=== PATIENT | male | born 1955 | race Caucasian/White ===

== ENCOUNTER 2023-09-04 15:27 | Outpatient (RCR) | payer MEDICARE, SELFPAY | END 2023-09-04 23:59 | disposition home or self-care (01) | LOC: RPT 15:27 | PROVIDERS: ATTENDING PHYSICIAN Internal Medicine Geriatric Medicine | DX: M54.50 Low back pain, unspecified (principal); Z73.6 Limitation of activities due to disability | CPT/HCPCS: 97110; 97162; 97530 ==

== ENCOUNTER 2023-09-26 16:52 | Outpatient (RCR) | payer MEDICARE, SELFPAY | END 2023-09-26 23:59 | disposition home or self-care (01) | LOC: RPT 16:52 | PROVIDERS: ATTENDING PHYSICIAN Internal Medicine Geriatric Medicine | DX: M54.9 Dorsalgia, unspecified (principal); Z73.6 Limitation of activities due to disability; M54.50 Low back pain, unspecified | CPT/HCPCS: 72110; 97010; 97110; 97112; 97140; 97530 ==

== ENCOUNTER → 2024-03-25 08:04 | Outpatient (REF) | payer MEDICARE, SELFPAY ==
[2024-03-25 10:06] LABS: % Basophils 0.3 % (0-2); % Eosinophils 0.6 % (0-6); % Immature Granulocytes 0.1 % (0-0.5); % Lymphocytes 14.5 % (20.5-51.1); % Monocytes 7.4 % (1.7-9.3); % Neutrophils 77.1 % (42.2-75.2); Absolute Monocytes 0.5 10^3/uL (0.1-0.6); Absolute Neutrophils 5.4 10^3/uL (1.4-6.5); Hematocrit 42.2 % (39.0-52.0); Hemoglobin 15.1 g/dL (13.0-18.0); Mean Corp Hgb Conc. 35.8 g/dL (33.0-37.0); Mean Corpuscular Hgb 29.7 pg (27.0-31.0); Mean Corpuscular Volume 82.9 fL (80.0-94.0); Mean Platelet Volume 11.7 fL (7.4-10.4); Nucleated Red Blood Cells % 0 % (-); Platelet Count 148 10^3/uL (130-400); Red Blood Cell Count 5.09 10^6/uL (4.70-6.10); Red Cell Dist. Width 12.4 % (11.5-14.5)
[2024-03-25 10:21] LABS: Urine Albumin Negative (Neg - Trace); Urine Bilirubin Negative (Negative); Urine Character Clear (Clear); Urine Color Yellow; Urine Glucose Negative (Negative); Urine Ketone Negative (Negative); Urine Leukocyte Negative (Negative); Urine Nitrite Negative (Negative); Urine Occult Blood Negative (Negative); Urine Specific Gravity 1.015 (<1.030); Urine Urobilinogen Negative (Neg - 1+); Urine pH 6.5 (5.0-9.0)
[2024-03-25 11:51] LABS: ALT (SGPT) 13 U/L (0-50); AST (SGOT) 23 U/L (17-59); Albumin 4.9 g/dl (3.5-5.0); Alkaline Phosphatase 65 U/L (38-126); Blood Urea Nitrogen 24 mg/dl (9-20); Calcium 9.9 mg/dl (8.4-10.2); Carbon Dioxide 25 mmol/L (22-30); Chloride 102 mmol/L (98-107); Glucose 113 mg/dl (70-99); HDL Cholesterol 45 mg/dl; LDL Cholesterol, Calculated 111 mg/dl; Potassium 4.4 mmol/L (3.5-5.1); Sodium 138 mmol/L (135-145); Total Bilirubin 0.8 mg/dl (0.2-1.3); Total Cholesterol 191 mg/dl (50-199); Total Protein 7.6 g/dl (6.3-8.2); Triglyceride 176 mg/dl (10-149); Very Low Density Lipoprotein 35 mg/dl (0-30)
[2024-03-25 12:01] LABS: Vitamin D, 25-OH*** 85.8 ng/mL (30-80)
[2024-03-25 12:17] LABS: PSA, Total - Screen 3.91 ng/ml (0.0-4.0)
== END ==
LOC: REG 08:04
PROVIDERS: ATTENDING PHYSICIAN Internal Medicine Geriatric Medicine
DX: Z00.00 Encounter for general adult medical examination without abnormal findings (principal); E78.2 Mixed hyperlipidemia; I10 Essential (primary) hypertension; G47.33 Obstructive sleep apnea (adult) (pediatric); E55.9 Vitamin D deficiency, unspecified; F32.A Depression, unspecified; R73.01 Impaired fasting glucose; M54.50 Low back pain, unspecified; Z13.31 Encounter for screening for depression; Z12.5 Encounter for screening for malignant neoplasm of prostate
CPT/HCPCS: 36415; 80053; 80061; 81003; 82306; 85025; G0103

== ENCOUNTER → 2024-09-09 07:55 | Outpatient (REF) | payer MEDICARE, SELFPAY ==
[2024-09-09 09:06] LABS: Urine Albumin Negative (Neg - Trace); Urine Bilirubin Negative (Negative); Urine Character Clear (Clear); Urine Color Yellow; Urine Glucose Negative (Negative); Urine Ketone Negative (Negative); Urine Leukocyte Negative (Negative); Urine Nitrite Negative (Negative); Urine Occult Blood Negative (Negative); Urine Urobilinogen Negative (Neg - 1+)
[2024-09-09 09:18] LABS: % Basophils 0.3 % (0-2); % Eosinophils 1.1 % (0-6); % Immature Granulocytes 0.2 % (0-0.5); % Lymphocytes 21.4 % (20.5-51.1); % Monocytes 9.6 % (1.7-9.3); % Neutrophils 67.4 % (42.2-75.2); Absolute Eosinophils 0.1 10^3/uL (0-0.7); Absolute Lymphocytes 1.4 10^3/uL (1.2-3.4); Absolute Monocytes 0.6 10^3/uL (0.1-0.6); Absolute Neutrophils 4.3 10^3/uL (1.4-6.5); Hematocrit 43.1 % (39.0-52.0); Hemoglobin 15.2 g/dL (13.0-18.0); Mean Corp Hgb Conc. 35.3 g/dL (33.0-37.0); Mean Platelet Volume 10.9 fL (7.4-10.4); Nucleated Red Blood Cells % 0 % (-); Platelet Count 178 10^3/uL (130-400); Red Blood Cell Count 5.07 10^6/uL (4.70-6.10); White Blood Cell Count 6.4 10^3/uL (4.8-10.8)
[2024-09-09 10:00] LABS: Vitamin D, 25-OH*** 102 ng/mL (30-80)
[2024-09-09 10:20] LABS: Albumin 4.5 g/dl (3.5-5.0); Blood Urea Nitrogen 14 mg/dl (9-20); Carbon Dioxide 22 mmol/L (22-30); Chloride 104 mmol/L (98-107); Glucose 122 mg/dl (70-99); HDL Cholesterol 46 mg/dl; Potassium 4.3 mmol/L (3.5-5.1); Sodium 138 mmol/L (135-145); Total Cholesterol 188 mg/dl (50-199); eGFR > 60.00
[2024-09-09 11:12] LABS: LDL Cholesterol, Calculated 112 mg/dl; Triglyceride 154 mg/dl (10-149); Very Low Density Lipoprotein 30 mg/dl (0-30)
== END ==
LOC: REG 07:55
PROVIDERS: ATTENDING PHYSICIAN Internal Medicine Geriatric Medicine
DX: F32.A Depression, unspecified (principal); E78.2 Mixed hyperlipidemia; I10 Essential (primary) hypertension; G47.33 Obstructive sleep apnea (adult) (pediatric); E55.9 Vitamin D deficiency, unspecified; R73.01 Impaired fasting glucose; M54.50 Low back pain, unspecified; Z13.31 Encounter for screening for depression
CPT/HCPCS: 36415; 80061; 80069; 81003; 82306; 85025

== ENCOUNTER → 2025-01-01 07:48 | Outpatient (REF) | payer MEDICARE, SELFPAY | LOC: HWRAD 07:48 | PROVIDERS: ATTENDING PHYSICIAN Internal Medicine Geriatric Medicine | DX: F32.A Depression, unspecified (principal); I10 Essential (primary) hypertension; E78.2 Mixed hyperlipidemia; G47.33 Obstructive sleep apnea (adult) (pediatric); E55.9 Vitamin D deficiency, unspecified; R73.01 Impaired fasting glucose; M54.50 Low back pain, unspecified | CPT/HCPCS: 76770 ==

== ENCOUNTER → 2025-04-16 10:32 | Outpatient (REF) | payer MEDICARE, SELFPAY | LOC: HWRAD 10:32 | PROVIDERS: ATTENDING PHYSICIAN Internal Medicine Geriatric Medicine | DX: E78.2 Mixed hyperlipidemia (principal) | CPT/HCPCS: 75571 ==

== ENCOUNTER → 2025-04-26 08:32 | Outpatient (REF) | payer MEDICARE, SELFPAY ==
[2025-04-26 09:49] LABS: ALT (SGPT) 16 U/L (0-50); AST (SGOT) 17 U/L (17-59); Albumin 4.3 g/dl (3.5-5.0); Alkaline Phosphatase 61 U/L (38-126); Blood Urea Nitrogen 18 mg/dl (9-20); Calcium 9.0 mg/dl (8.4-10.2); Carbon Dioxide 25 mmol/L (22-30); Chloride 107 mmol/L (98-107); Glucose 125 mg/dl (70-99); HDL Cholesterol 44 mg/dl; LDL Cholesterol, Calculated 137 mg/dl; Potassium 4.4 mmol/L (3.5-5.1); Sodium 139 mmol/L (135-145); Total Protein 7.3 g/dl (6.3-8.2); Very Low Density Lipoprotein 45 mg/dl (0-30); eGFR > 60.00
[2025-04-27 12:14] LABS: CRP, Ultra Sensitive 2.25 mg/L (0.30-5.00)
[2025-04-27 21:42] LABS: Lipoprotein a (Lp a) 9 mg/dL (<=29)
== END ==
LOC: REG 08:32
PROVIDERS: ATTENDING PHYSICIAN Internal Medicine Geriatric Medicine
DX: I10 Essential (primary) hypertension (principal); E78.2 Mixed hyperlipidemia
CPT/HCPCS: 36415; 80053; 80061; 82172; 83695; 86141

== ENCOUNTER → 2025-06-07 10:18 | Outpatient (REF) | payer MEDICARE, SELFPAY | LOC: RAD 10:18 | PROVIDERS: ATTENDING PHYSICIAN Internal Medicine Geriatric Medicine | DX: R93.1 Abnormal findings on diagnostic imaging of heart and coronary circulation (principal); I72.9 Aneurysm of unspecified site | CPT/HCPCS: 75574; Q9967 ==

== ENCOUNTER → 2025-07-15 07:32 | Outpatient (REF) | payer MEDICARE, OTHER, SELFPAY | LOC: HWRCS 07:32 | PROVIDERS: ATTENDING PHYSICIAN Internal Medicine Cardiovascular Disease; FAMILY PHYSICIAN Internal Medicine Geriatric Medicine | DX: I25.10 Atherosclerotic heart disease of native coronary artery without angina pectoris (principal); R06.09 Other forms of dyspnea | CPT/HCPCS: 78452; 93017; A9500; J2785 ==

== ENCOUNTER → 2025-07-16 08:02 | Outpatient (REF) | payer MEDICARE, OTHER, SELFPAY | LOC: HWRCS 08:02 | PROVIDERS: ATTENDING PHYSICIAN Internal Medicine Cardiovascular Disease; FAMILY PHYSICIAN Internal Medicine Geriatric Medicine | DX: I25.10 Atherosclerotic heart disease of native coronary artery without angina pectoris (principal); R06.09 Other forms of dyspnea | CPT/HCPCS: 93306 ==